=== PATIENT | male | born 1950 | race Caucasian/White ===

== ENCOUNTER → 2019-01-16 | Outpatient (CLI) | payer BC ==
--- NOTE | 2019-01-17 16:17 | MR ---
MR brain without contrast HISTORY: Brainstem stroke, cerebrovascular accident., Dysphasia and dizziness Multiplanar multisequence imaging obtained through the brain No comparisons There is no restricted diffusion. No evident hemorrhage or hydrocephalus. Cortical atrophy is likely age-related. Some scattered periventricular, deep white matter hyperintensities on inversion recovery T2-weighted sequences likely indicative of chronic small vessel ischemic changes. There are normal v ascular flow voids. Corpus callosum, pituitary, cervical medullary junction, cerebellopontine angles are normal. Paranasal sinuses are well aerated, mastoids are unremarkable. Orbits show symmetric appe arance. IMPRESSION: Nonspecific white matter demyelination, cortical atrophy. No subacute ischemia evident.
== END | disposition home or self-care (01) ==
LOC: RADMRIMAIN 10:34
PROVIDERS: ATTEND Psychiatry & Neurology Neurology
DX: R13.10 Dysphagia, unspecified (principal); R25.9 Unspecified abnormal involuntary movements; R42 Dizziness and giddiness
CPT/HCPCS: 70551

== ENCOUNTER → 2020-07-03 | Outpatient (CLI) | payer MEDICARE ==
--- NOTE | 2020-07-03 12:12 | MR ---
EXAMINATION TYPE: MR brain and iac wo/w con DATE OF EXAM: 07/03/2020 COMPARISON: 01/16/2019 HISTORY: Dizziness TECHNIQUE: Multiplanar, multisequence images of the brain and brainstem is performed without and with IV contras t, utilizing mL intravenous . FINDINGS: Diffusion weighted images demonstrate no evidence of a recent infarct or other diffusion ab normality. There are scattered areas of subcutaneous millimeter white matter signal bilaterally comp atible with mild chronic white matter disease. Midline structures demonstrate normal morphology. The craniocervical junction appears within normal limits. Post contrast images demonstrate no abnormal enhancement. The dural venous sinuses appear pa tent. The visualized sinuses demonstrate mild chronic sinusitis and the globes are intact. There is no evidence of cerebellopontine angle mass or acoustic schwannoma. Trace amount flows surrou nding optic nerves is a nonspecific finding correlate with clinical exam. Findings stable from prior exam. Mastoid air cells are clear. IMPRESSION: 1. No evidence of cerebellopontine angle mass or acoustic schwannoma. 2. There is a nonspecific small amount of fluid surrounding the optic nerves bilaterally, stable from prior exam. Occasionally can be associated with papilledema although, there is no orbital flattening . Correlate clinically. 3. Mild nonspecific white matter changes most typical remote white matter ischemia.
== END | disposition home or self-care (01) ==
LOC: RADMRIMAIN 10:44
PROVIDERS: ATTEND Psychiatry & Neurology Neurology
DX: I67.82 Cerebral ischemia (principal); R90.82 White matter disease, unspecified
CPT/HCPCS: 70553; A9585